=== PATIENT | male | born 1995 | race Caucasian/White ===

== ENCOUNTER 2018-12-12 14:05 | Emergency (ER) | payer BC, OTHER ==
--- NOTE | 2018-12-12 14:35 | EDPHY ---
H & P Stated Complaint: Swelling and discoloration L hand post casting Time Seen by Provider: 12/12/18 14:34 HPI/ROS: HPI: This is a 23-year-old male who presents with Chief Complaint: Swelling and discoloration L hand post casting Location: Left hand, thumb Quality: Swelling and discoloration Duration: 24 hr Signs and Symptoms: No bleeding, no radiation, no numbness, no weakness, no tingling, no incontinence, + decreased range of motion, + swelling, + pain, no fever Timing: Worsening Severity: Moderate Context: Patient reports that he was snowboarding yesterday at [place] when he fell down and broke his wrist. He was seen at the [facility] Denies LOC/head injury/neck pain/dizziness/nausea/vomiting/amnesia. Patient reports that he was seen in the [facility] and had an x-ray performed that showed fracture of his radius. He was placed in a splint. He reports that he went home and started to notice his thumb turning dark in color with numbness and tingling. He reports that his fingers feel swollen and have numbness and tingling. Modifying Factors: Splint Comment: ROS: A comprehensive 10 system review of systems is otherwise negative aside from elements mentioned in the history of present illness. MEDICAL/SURGICAL/SOCIAL HISTORY: Medical history: Left wrist fracture Surgical history: Denies Social history: Current every day smoker. CONSTITUTIONAL: Well-developed, well-nourished adult white male, awake and alert, no obvious distress HEENT: Atraumatic and normocephalic. NECK: supple, no midline tenderness Cardiovascular: Normal S1/S2, regular rate, regular rhythm, without murmur rub or gallop. PULMONARY/CHEST: Symmetrical and nontender. Clear to auscultation bilaterally. Good air movement. No accessory muscle usage. ABDOMEN: Soft, nondistended, nontender. BACK: No midline tenderness. Ambulating without difficulty. EXTREMITIES: 2/2 pulses, strength 5/5, able to mildly move all fingers. Thumb is purplish blue in color with delayed capillary refill. Right wrist shows swelling over the radial aspect. DIP/PIP/MCP flexion/extension intact with good light touch sensation. no deformities, no clubbing, no cyanosis or edema. NEUROLOGICAL: no focal neuro deficits. GCS 15. Light touch sensation intact. SKIN: Warm and dry, no erythema. no rash. Good capillary refill. Source: Patient Exam Limitations: No limitations - Personal History Current Tetanus/Diphtheria Vaccine: Unsure Current Tetanus Diphtheria and Acellular Pertussis (TDAP): Unsure - Medical/Surgical History Hx Asthma: No Hx Chronic Respiratory Disease: No Hx Diabetes: No Hx Cardiac Disease: No Hx Renal Disease: No Hx Cirrhosis: No Hx Alcoholism: No Hx HIV/AIDS: No Hx Splenectomy or Spleen Trauma: No Other PMH: Fractured L wrist. - Social History Smoking Status: Current some day smoker Constitutional: Initial Vital Signs Temperature (C) 36.9 C 12/12/18 14:15 Heart Rate 77 12/12/18 14:15 Respiratory Rate 16 12/12/18 14:15 Blood Pressure 132/83 H 12/12/18 14:15 O2 Sat (%) 97 12/12/18 14:15 O2 Delivery Mode Room Air Allergies/Adverse Reactions: gluten Allergy (Intermediate, Verified 12/12/18 14:19) Abdominal Cramping Home Medications: Medication Instructions Recorded NK [No Known Home Meds] 12/12/18 Medical Decision Making Procedures: Procedure: Splint placement. A right sugar-tong Ortho Glass splint and sling were applied by the Emergency Room feed mill lab technician. After application of the splint I returned and re-examined the patient. The splint was adequately immobilizing the joint and distal to the splint the patient's circulation and sensation was intact. ED Course/Re-evaluation: Vital signs reviewed and stable Removed splint upon arrival with improvement in range of motion and return of skin to normal color with normal capillary refill. Right wrist x-ray ordered and my read via PAC shows close distal radial fracture that is minimally displaced with ulnar styloid fracture. Reviewed images at bedside with patient. Placed in sugar-tong splint and given sling with orthopedic follow-up No signs of neurovascular compromise/tenting of skin/compartment syndrome/ extremities and joints examined above and below area of concern and are neurovascularly intact. This patient was seen under the supervision of my secondary supervising physician. I evaluated care for this patient independently. Discussed this patient with Dr. Johnson who did not see the patient. Differential Diagnosis: Differential diagnosis includes but is not limited to compartment syndrome, right Colles fracture, splint malfunction. Departure - Departure Disposition: Home, Routine, Self-Care Clinical Impression: Displaced fracture of left ulna styloid process, sequela Closed fracture of right distal radius Qualifiers: Encounter type: subsequent encounter Fracture morphology: Colles' Fracture healing: with routine healing Qualified Code(s): S52.531D - Colles' fracture of right radius, subsequent encounter for closed fracture with routine healing Condition: Good Instructions: Wrist Fracture in Adults (ED), Splint Care (ED), ORIF of a Wrist Fracture (DC) Additional Instructions: Keep the splint dry and in place until seen by Orthopedics. Wear the sling while out of bed for comfort. Take Tylenol 650 mg every 4 hours and/or Ibuprofen 600 mg every 8 hours with food as needed for pain. Apply ice for 30 minutes at a time; 2-3 times per day for the next 1-2 days. Follow up with Orthopedics in 5-7 days at which time they will evaluate and recommend with you if conservative management versus surgery is indicated. Return to the ER immediately if you experience new or worsening pain, discoloration, numbness, tingling, or any other symptoms that concern you. Referrals: Tucker Cheatham MD [Medical Doctor] - As per Instructions
[2018-12-12 15:28] VITALS: BP 131/74
== END 2018-12-12 15:26 | disposition home or self-care (01) ==
PROC: 2W3DX1Z Immobilization of Left Lower Arm using Splint (ICD-10-PCS; principal; 2018-12-12)
DX: S52.531D Colles' fracture of right radius, subsequent encounter for closed fracture with routine healing (principal); L81.9 Disorder of pigmentation, unspecified; M79.89 Other specified soft tissue disorders
CPT/HCPCS: A4565